=== PATIENT | male | born 1975 | race Caucasian/White ===

== ENCOUNTER 2021-12-03 18:22 | Emergency (ER) | payer OTHER, MEDICAID, SELFPAY ==
[2021-12-03 18:30] VITALS: BP 149/84; PULSE 108; RESP 20; TEMP 37.5; O2SAT 97
--- NOTE | 2021-12-03 18:38 | ED.NAVMDI ---
HPI - Nausea/Vomiting/Diarrhea General Chief complaint: Upper Respiratory Infection Stated complaint: fever diahrrea and pain on side pain Time Seen by Provider: 12/03/21 18:41 Source: patient and RN notes reviewed Mode of arrival: ambulatory Limitations: no limitations History of Present Illness HPI Narrative: 46-year-old male presents with concern for 3-day history of fever, body aches, slight cough, nasal congestion. He reports chronic diarrhea and epigastric pain for which he has seen his primary care doctor for. He denies any changes in his chronic symptoms. He also reports chronic swelling glands. Reports taking Tylenol for his fever prior to arrival. Reports a fever up to 101.7 MD elicited complaint: nausea, vomiting and diarrhea Related Data Home Medications Medication Instructions Recorded Confirmed omeprazole 20 mg capsule,delayed 20 mg PO BID 12/03/21 12/03/21 release Allergies Allergy/AdvReac Type Severity Reaction Status Date / Time No Known Allergies Allergy Verified 12/03/21 18:42 Review of Systems Review of Systems: CONSTITUTIONAL: Reports malaise, chills, sweats, or fever. EYES: Denies visual changes, redness, or discharge. ENT: Reports rhinorrhea, congestion. Denies sinus pain, otalgia and sore throat. CARDIOVASCULAR: Denies chest pain, palpitations, or edema. RESPIRATORY: Reports cough. Denies dyspnea. GASTROINTESTINAL: Reports chronic epigastric abdominal pain, diarrhea. Denies nausea, vomiting SKIN: Denies rash or itching. MUSCULOSKELETAL: Reports myalgia. NEUROLOGIC: Reports headache. All systems reviewed & are unremarkable except as noted in HPI and below PMFSH Comments At time of signature, agree with nursing past medical, surgical, social and family history. There is no relevant family history pertinent to the presenting complaint Exam Narrative: ENERAL: Nontoxic and in no acute distress. HEAD: Normocephalic EYES: PERRLA, conjunctivae clear ENT: Nares clear, clear discharge. Mucous membranes moist. TM pearly donovan with dull light reflex bilaterally; no tragal tenderness. Oropharynx not erythematous without lesions. Tonsils not enlarged and without exudate, no drooling, no hoarseness, no trismus, uvula midline. NECK: Supple. No lymphadenopathy CHEST: Clear to auscultation, breath sounds equal. No wheezing, rhonchi, rales, or stridor. No respiratory distress, speaks in full sentences. HEART: Regular rate and rhythm. No murmur heard. ABDOMEN: Soft, flat, nondistended. No guarding, rebound tenderness, or rigid. No pulsatilla masses. Bowel sounds present in all four quadrants. No organomegaly. Negative Kraft?s sign. No periumbilical tenderness. No Supra public tenderness or distension. Good femoral pulses bilaterally. No hernia noted. No scars or surface trauma. SKIN: Warm, dry, no rash. NEURO: Alert and oriented x3. PSYCH: Normal mood and affect Course Course Emergency Course: Discussed limited diagnostic capability at [facility] and patient following up with his primary care doctor for further evaluation of his chronic gastric symptoms and lymphadenopathy. Patient given information for gastroenterology follow-up Patient is aware of diagnosis, understands and agrees to treatment plan. Anticipatory guidance given. Patient agrees to follow-up as directed and is aware of reasons to seek care at the emergency department. Portions of this record may have been created with voice recognition software Level of Care: Express Care Visit Vital Signs Vital signs: Reviewed. MDM - Nausea/Vomiting/Diarrhea MDM Narrative Medical decision making narrative: Differential diagnosis considered: [place] virus, strep pharyngitis, allergic rhinitis, upper respiratory tract infection, sinusitis, rhinosinusitis, nasopharyngitis. viral pharyngitis, otitis media, otitis externa, pneumonia, bronchitis, viral cough syndrome, viral syndrome, and influenza. Exam findings show no acute concerns or changes; franchesca
[2021-12-04 18:53] LABS: SARS-CoV-2 RNA PCR Negative
== END 2021-12-03 19:21 | disposition home or self-care (01) ==
PROVIDERS: Emergency Provider Nurse Practitioner
DX: J10.1 Influenza due to other identified influenza virus with other respiratory manifestations (principal); Z20.822 Contact with and (suspected) exposure to COVID-19; K21.9 Gastro-esophageal reflux disease without esophagitis
CPT/HCPCS: 87081; 87804; 87880; 99213; C9803; G0463; U0003; U0005

== ENCOUNTER 2022-04-12 17:39 | Emergency (ER) | payer OTHER, SELFPAY ==
[2022-04-12 17:44] VITALS: BP 138/88; PULSE 93; RESP 18; TEMP 37.4; O2SAT 99
--- NOTE | 2022-04-12 18:01 | ED.URI ---
HPI - URI/Sore Throat General Chief Complaint: Skin/Abscess/Foreign Body Stated Complaint: rash on chest Time Seen by Provider: 04/12/22 18:01 Source: patient, RN notes reviewed and old records reviewed Mode of arrival: ambulatory Limitations: no limitations History of Present Illness HPI Narrative: 46 year old male who presents to express care with complaints of rash to his chest 4 days ago. He states that he went today and had echocardiogram done and they expressed concern of the rash on chest wondering if could be shingles. Patient reports that he does have dogs that go out and he carries one up on his chest that could of gotten into poison beckie. Patient has area on left chest area that has vesicles with some yellowish drainage reported from area yesterday and area is itching. Patient also has small area to right inner wrist area that appears similar that is also itchy, MD elicited complaint: other (rash) Onset (ago): day(s) (4) Treatments prior to arrival: other (cleansed with alcohol and applied hydrocortisone ointment) Related Data Home Medications Medication Instructions Recorded Confirmed metoprolol succinate 50 mg 50 mg PO DAILY 04/12/22 04/12/22 tablet,extended release 24 hr omeprazole 20 mg capsule,delayed 20 mg PO DAILY 04/12/22 04/12/22 release pantoprazole 40 mg tablet,delayed 40 mg PO DAILY 04/12/22 04/12/22 release Allergies Allergy/AdvReac Type Severity Reaction Status Date / Time No Known Allergies Allergy Verified 04/12/22 17:57 Review of Systems Review of Systems: CONSTITUTIONAL: Denies fever, chills, or sweats. CARDIOVASCULAR: Denies chest pain, palpitations, or edema. RESPIRATORY: Denies cough or dyspnea. SKIN: Reports rash to left chest area that is itchy and did have some yellowish drainage from tissue area, also small area on right inner wrist. MUSCULOSKELETAL: Denies joint pain or myalgia. NEUROLOGIC: Denies headache, numbness, or weakness. All systems reviewed & are unremarkable except as noted in HPI and below PMFSH Past Medical History Medical History (Updated 04/16/22 @ 10:15 by Marianne Albert NP) GERD (gastroesophageal reflux disease) Hypertension Social History Social History (Updated 04/16/22 @ 10:16 by Marianne L. Bety, BUFFING MACHINE OPERATOR) Smoking status: Never smoker Alcohol intake: unknown Substance use type: does not use Living arrangements: with family Gender identity (if verbalized by the patient): Male Comments At time of signature, agree with nursing past medical, surgical, social and family history. There is no relevant family history pertinent to the presenting complaint Exam Narrative: GENERAL: Well-appearing, well-nourished, and in no acute distress. HEAD: Normocephalic, atraumatic. EYES: PERRLA, conjunctivae clear, and EOMI. ENT: Mucous membranes moist. Oropharynx without edema, erythema or lesions. NECK: Supple. No lymphadenopathy CHEST: Clear to auscultation. No respiratory distress. HEART: Regular rate and rhythm. SKIN: Warm, dry.? Patches of erythema and edema left chest area with vesicles and on inner right wrist small area NEURO:? Alert and oriented x3. PSYCH: Normal mood and affect Course Course Emergency Course: Patient is aware of diagnosis, understands and agrees to treatment plan.? Anticipatory guidance given.? Patient agrees to follow-up as directed and is aware of reasons to seek care at the emergency department. Portions of this record may have been created with voice recognition software Level of Care: Express Care Visit Vital Signs Vital signs: Vital Signs Temperature 37.4 C 04/12/22 17:44 Pulse Rate 93 04/12/22 17:44 Respiratory Rate 18 04/12/22 17:44 Blood Pressure 138/88 04/12/22 17:44 Pulse Oximetry 99 04/12/22 17:44 Oxygen Delivery Room Air 04/12/22 17:44 Temperature 37.4 C 04/12/22 17:44 Pulse Rate 93 04/12/22 17:44 Respiratory Rate 18 04/12/22 17:44 Blood Pressure
== END 2022-04-12 18:30 | disposition home or self-care (01) ==
PROVIDERS: Emergency Provider Registered Nurse; PCP Family Medicine
DX: L25.9 Unspecified contact dermatitis, unspecified cause (principal); K21.9 Gastro-esophageal reflux disease without esophagitis; I10 Essential (primary) hypertension
CPT/HCPCS: 99213; G0463

== ENCOUNTER 2023-03-03 08:06 | Emergency (ER) | payer OTHER, SELFPAY ==
[2023-03-03 08:15] VITALS: BP 133/78; PULSE 65; RESP 18; TEMP 36.7; O2SAT 100
--- NOTE | 2023-03-03 08:54 | ED.GENADULT ---
HPI - General Adult General Chief complaint: Upper Respiratory Infection Stated complaint: sore throat,runny nose,chest hurts Source: patient Mode of arrival: ambulatory Limitations: no limitations History of Present Illness HPI narrative: Patient presents for evaluation of sick symptoms for the last 2-3 days. His primary concern is a sore throat. He also has rhinorrhea and has been sneezing. He visualized white exudate in his posterior pharynx. Reports some right lower chest pain. He had similar symptoms in the past with COVID. No recent sick contacts to his knowledge. No fever, chills, nausea, vomiting, cough, shortness of breath. He tried taking Emilia for his symptoms. He does not smoke. Related Data Home Medications Medication Instructions Recorded Confirmed metoprolol succinate 50 mg 50 mg PO DAILY 04/12/22 03/03/23 tablet,extended release 24 hr atorvastatin 40 mg tablet 40 mg PO DAILY 03/03/23 03/03/23 Allergies Allergy/AdvReac Type Severity Reaction Status Date / Time No Known Allergies Allergy Verified 03/03/23 08:34 Review of Systems Review of Systems: CONSTITUTIONAL: Denies fever, chills, or sweats. EYES: Denies visual changes, redness, or discharge. ENT: Reports sneezing, rhinorrhea and sore throat CARDIOVASCULAR: Reports right lower chest pain. Denies palpitations, or edema. RESPIRATORY: Denies cough or dyspnea. GASTROINTESTINAL: Denies abdominal pain, nausea, vomiting, or diarrhea. GENITOURINARY: Denies dysuria or hematuria. SKIN: Denies rash or itching. MUSCULOSKELETAL: Denies back pain, joint pain, or myalgia. NEUROLOGIC: Denies headache, numbness, dizziness, or weakness. PSYCHIATRIC: Denies anxiety or depression. [facility] Past Medical History Medical History GERD (gastroesophageal reflux disease) Hyperlipidemia Hypertension Surgical History Surgical History No pertinent past surgical history Family History Family History Mother Family history non-contributory Social History Social History Smoking status: Never smoker Alcohol intake: unknown Substance use type: does not use Living arrangements: alone Gender identity (if verbalized by the patient): Male Spiritual care concerns: No Exam Narrative: GENERAL: Well-appearing, well-nourished, and in no acute distress. HEAD: Normocephalic, atraumatic. EYES: PERRLA and EOMI. ENT: Nares clear, no rhinorrhea or epistaxis. Mucous membranes moist. There is posterior pharyngeal erythema and white exudate. Uvula is midline. Bilateral TMs pearly donovan nonbulging NECK: Supple. No adenopathy or masses. No carotid bruits or JVD CHEST: Clear to auscultation. No respiratory distress. No wheezes rales or rhonchi HEART: Regular rate and rhythm. No murmur heard. Normal peripheral pulses. ABDOMEN: Soft, nontender, nondistended, normal active bowel sounds. EXTREMITIES: Normal range of motion. No edema. SKIN: Warm, dry, no rash. NEURO: No focal deficits. Alert and oriented x3. PSYCH: Normal mood and affect. Course Course Emergency Course: This is a 47-year-old male who presented for evaluation of sick symptoms. Strep, COVID, influenza were all negative. I recommended he repeat a COVID test in 48 hours. Will send throat culture. Will dc with augmentin per his preference while throat culture pending. Follow up with primary care provider. Go to the ER for worsening symptoms. Pt in agreement with plan of care. Level of Care: Express Care Visit Vital Signs Vital signs: Vital Signs Temperature 36.7 C 03/03/23 08:15 Pulse Rate 65 03/03/23 08:15 Respiratory Rate 18 03/03/23 08:15 Blood Pressure 133/78 03/03/23 08:15 Pulse Oximetry 100 03/03/23 08:15 Oxygen Delivery
== END 2023-03-03 08:55 | disposition home or self-care (01) ==
PROVIDERS: Emergency Provider Nurse Practitioner; PCP Family Medicine
DX: J02.9 Acute pharyngitis, unspecified (principal); K21.9 Gastro-esophageal reflux disease without esophagitis; E78.5 Hyperlipidemia, unspecified; I10 Essential (primary) hypertension
CPT/HCPCS: 87081; 87426; 87804; 87880; 99213; C9803; G0463

== ENCOUNTER 2024-08-15 10:27 | Emergency (ER) | payer OTHER, SELFPAY ==
[2024-08-15 10:38] VITALS: BP 135/87; PULSE 86; RESP 20; TEMP 36.8; O2SAT 100
--- OUTSIDE RECORDS SUMMARY | 2024-08-15 10:41 | XMS_ITS | Encounter Summary ---
Author Organization [facility] Address [address] [place] [address] Phone Care Team Providers Care Senior Licensing Manager Name Role Phone Juan Estrada MD Primary Care Provider [phone] Sanchez Estrada MD Unavailable Doug Anne MD Unavailable Diane Donald RN Unavailable Unavaila Jasmine Philip APRN, STICK PULLER Unavailable [phone]- [phone] Bjorn Denise PAC Unavailable [phone] Reason for Visit * Reason Onset Date Comments Prior Authorization 08/03/2022 Encounter Details Date Type Department Care Team (Late st Contact Info) Description 08/03/2022 Telephone [facility] Outpatient [address] [place] [address] Juan Estrada MD #[address] [address] Prior Authorization Social History Tobacco Use Types Packs/Day Years Used Date Smoking Tobacco: Never Smokeless Tobacco: Never Alcohol Use Standard Drinks/Week Comments Never 0 (1 standard drink = 0.6 oz pur e alcohol) PHQ-2 Answer Date Recorded Total Score - Questions 1-9 0 12/31 Education Answer Date Recorded What is the highest level of school you have completed or the highest degree you have received? Associate degree: occupational, technical, or vocational program 11/15/2021 Sexually Active Control Partners Comments Not Currently Female Sex and Gender Information Value Date Recorded Sex Assigned at Male 02/12/2023 9:20 AM CDT Legal Sex Male 10:28 PM CDT Gender Identity Male 02/12/2023 9:20 AM CDT Sexual Orientation Not on file COVID-19 Exposure Response Date Recorded In the last 10 days, have yo u been in contact with someone who was confirmed or suspected to have Coronavirus/COVID-19? No / Unsure 08/03/2022 2:27 PM INSOLE PRESSER documented as of this encounter Miscellaneous Notes * Telephone Encounter - Juan Estrada MD - 08/03/2022 3:06 PM INSOLE PRESSER Thanks for setting this up! LE PRESSER * Telephone Encounter - Gertrude Raygoza RN - 08/03/2022 12:46 PM CST Scheduled for tomorrow, 10 am. They will call you LE PRESSER * Telephone Encounter - Juan Estrada MD - 08/03/2022 10:23 AM INSOLE PRESSER Please schedule peer to peer for tomorrow morning. Thanks! LE PRESSER * Telephone Encounter - Emilie Perla - 08/03/2022 10:14 AM CST Auth Denied-P2P offered Ordering Provider: Internal Appointment Info: Clinic: [facility] Provider: DAMIANMHARMANILAB Appt Date/Time: Aug 9:00 AM Clinic: [facility] Provider: [email or web address] Appt Date/Time: Aug 9:15 AM Clinic: [facility] Provider: SHAMEKA Burrell Date/Time: Aug 10:00 AM Payor + Plan: MEDICAID AETNA BETTER HEALTH - A[employer] BETTER HEALTH MEDICAID CPT/Test: 03090 Authorization denied through: [employer] Reason for denial: Based on [employer] Cardiac Imaging Guidelines Section(s): Stress Testing with Imaging - Indications (CD 1.4), we cannot approve this request. Your healthcare provider told us that there is a concern related to the blood vessels in your heart. The request cannot be approved because: You must have one of the following. -Findings on your current electrocardiogram or ECG (a tracing of your heart's electrical activity) that could make it hard to determine whether or not your heart is getting enough blood supply with exercise. -An inability to walk on a treadmill as much as needed to reach the target heart rate during an exercise treadmill test or ETT (an ECG and blood pressure check done before, during, and after walking on a treadmill). This would be due to the need for ambulatory assistance (such as a wheelchair, cane, or walker), a significant neurologic (nerves and/or nervous system) issue, or an orthopedic issue. -A history of an ETT with results that were abnormal but did not appear to be due to coronary artery disease (a disease to the blood vessels that provide blood to your heart muscle). Add'l Steps Taken (Pt Notified, Reached out to Provider, etc.): Peer to Peer review offered by Payer: Yes Peer to Peer review expires: 08/17/22 Case #: [id number] Phone #: [phone] Physician: Juan Barry Notified? Yes LE PRESSER documented in this encounter Plan of Treatment Upcoming Encounters Date Type Department Care Team (Late st Contact Info) Description 09/02/2024 10:30 AM INSOLE PRESSER Office Visit [facility] - Neurology - [place] [address] [place] [address] Jasmine Rico APRN, STICK PULLER [address] [place] [address] documented as of this encounter Visit Diagnoses Not on filedocumented in this encounter Care Teams Senior Licensing Manager Relationship Specialty Start Date End Date Juan Estrada MD #2 [facility] [address] [place] [address] PCP - General Family Medicine 01/11/21 Sanchez Estrada MD #2 [facility] [address] [place] [address] Consulting Physician Colon and Rectal Surgery 03/07/22 Doug Anne MD #[address] [address] Consulting Physician Cardiovascular Disease - Cardiology 05/01/22 Diane Schwartz RN [place] Registered Nurse Cardiology 05/09/22 Jasmine Rico, FUEL RETROFITTING TECHNICIAN, STICK PULLER [address] [place] [address] Nurse Practitioner Advanced Practice Nurse 06/16/22 Bjorn Denise PAC #2 [facility] [facility] [address] [place] [address] Physician Home Visit Field Care Manager Physician Home Visit Field Care Manager 08/05/24 documented as of this encounter
--- OUTSIDE RECORDS SUMMARY | 2024-08-15 10:42 | XMS_ITS | Encounter Summary ---
Author Organization [facility] Address [address] [place] [address] Phone Care Team Providers Care Chair Springer Name Role Phone Juan Estrada MD Primary Care Provider [phone] Sanchez Estrada MD Unavailable Doug Anne MD Unavailable Diane Donald RN Unavailable Unavaila Jasmine Philip APRN, SUBPOENA SERVER Unavailable [phone] Bjorn Denise PAC Unavailable [phone] Encounter Details Date Type Department Care Team (Late st Contact Info) Description 06/22/2024 Results Follow-Up [facility] - Family Medicine [facility] #[address] [place] [id number] Juan Estrada MD #[address] [address] Social History Tobacco Use Types Packs/Day Years Used Date Smoking Tobacco: Never Smokeless Tobacco: Never Alcohol Use Standard Drinks/Week Comments Never 0 (1 standard drink = 0.6 oz pur e alcohol) Overall Financial Resource Strain (CARDIA) Answe r Date Recorded How hard is it for you to pa y for the very basics like food, housing, medical care, and heating? Somewhat hard 06/03/2024 PHQ-2 Answer Date Recorded Total Score - Questions 1-9 0 08/2023 [place] [facility] - Occupational Stress Questionnaire Answer Date Recorded Do you feel stress - tense, restless, nervous, or anxious, or unable to sleep at night because your mind is troubled all the time - these days? To some extent 06/03/2024 Exercise Vital Sign Answer Date Recorde d On average, how many days pe r week do you engage in moderate to strenuous exercise (like a brisk walk)? 0 days 06/03/2024 On average, how many minutes do you engage in exercise at this level? 0 min 06/03/2024 Hunger Vital Sign Answer Date Recorded Within the past 12 months, y ou worried that your food would run out before you got the money to buy more. Never true 06/03/20 24 Within the past 12 months, t he food you bought just didn't last and you didn't have money to get more. Never true 06/03/2024 PRAPARE - Transportation Answer Date Re corded In the past 12 months, has l ack of transportation kept you from medical appointments or from getting medications? No 08/2023 In the past 12 months, has l ack of transportation kept you from meetings, work, or from getting things needed for daily living? No 06/03/2024 Housing Stability Vital Sign Answer Israel e Recorded In the last 12 months, was t here a time when you were not able to pay the mortgage or rent on time? No 06/03/2024 Number of Times Moved in the Last Year Not on fi le 06/03/2024 At any time in the past 12 m [facility], were you homeless or living in a usp (including now)? No 06/03/2024 Education Answer Date Recorded What is the [...] AM CDT Sexual Orientation Not on file documented as of this encounter Plan of Treatment Upcoming Encounters Date Type Department Care Team (Late st Contact Info) Description 09/02/2024 10:30 AM CO FOUNDER AND PRESIDENT Office Visit [facility] - Neurology - [place] [address] [place] [address] Jasmine Rico APRN, SUBPOENA SERVER [address] [place] [address] documented as of this encounter Visit Diagnoses Not on filedocumented in this encounter Additional Health Concerns Assessment Noted Time PHQ-9 Depression Total Score: 0 06/03/20 24 3:28 PM CO FOUNDER AND PRESIDENT documented as of this encounter Care Teams Chair Springer Relationship Specialty Start Date End Date Juan Estrada MD #[address] [address] PCP - General Family Medicine 01/11/21 Sanchez Estrada MD [address] [address] Consulting Physician Colon and Rectal Surgery 03/07/22 Doug Anne MD #[address] [address] Consulting Physician Cardiovascular Disease - Cardiology 05/01/22 Diane Schwartz RN [place] Registered Nurse Cardiology 05/09/22 Jasmine Rico APRN, SUBPOENA SERVER #[address] [place] [address] Nurse Practitioner Advanced Practice Nurse 06/16/22 Bjorn Denise PAC [address] [address] Physician Patient Safety Manager Physician Patient Safety Manager 08/05/24 documented as of this encounter
--- OUTSIDE RECORDS SUMMARY | 2024-08-15 10:42 | XMS_ITS | Continuity of Care Document ---
Author Organization [facility] Address [address] [place] [address] [address] [place] [address] Phone Care Team Providers Care Hand Coremaker Name Role Phone Argueta OD, Pablo Unavailable Unavailable Procedures Procedure Date Office/outpatient Visit, Est Office/outpatient Visit, Est Office/outpatient Visit, New Therapeutic Fitting Of Contact Lens Advance Directives Directive Yes / No Effective Date File Name No Information Encounters Encounter Description Practice Location Reason(s) For Visit Diagnoses Date Provider Providers Copied on Encounter Office/outpat ient Visit, [facility], [address] [place] [address] [address], [place], [place], [id number], tel:[phone] [facility] No Information 9-200 8 Argueta OD Pablo. [facility] [address] [facility] [address], [place], [address], . tel:[phone] Office/outpat ient Visit, [facility], [address] [place] [address] [address], [place], [place], [id number], tel:[phone] [facility] No Information 2-200 8 Argueta OD Pablo. Vivian [facility] [address], [place], [address], [place]. tel:[phone] Referring Provider: Vivian Self [facility] [address], [place], [place], [facility]. tel:[phone] Office/outpat ient Visit, [facility], [address] [place] [address] [address], [place], [place], [id number], [place] tel:[phone] [facility] [place] No Information [address] Carrillo. [address] [facility] , [address], [place], [address], [place]. tel:[phone] Family History Family Member Type Diagnosis Age At Onset No Information Payers Payer name Insurance type Covered democrat ID Juan davalos(s) [employer] [id number] Social History Type Description Quantity Date Captured Comments Sex Male Smoking Status No Information Chief Complaint And Reason For Visit No Information Reason For Referral Reason For Referral No Information History Of Present Illness Encounter Date Complaint History Of Prese nt Illness No Information Functional Status Date Functional Assessmen t No Information Instructions Date Instruction Additional Infor mation No Information Assessments Type Assessment Date No Information Patient Care Teams Name Effective Dates (start - stop) Status Members No Information
--- OUTSIDE RECORDS SUMMARY | 2024-08-15 10:42 | XMS_ITS | Encounter Summary ---
Author Organization [facility] Address [address] [place] [place] [address] Phone Care Team Providers Care Faith Doctor Name Role Phone Juan Estrada MD Primary Care Provider [phone] Sanchez Estrada MD Unavailable Doug Anne MD Unavailable Diane Donald RN Unavailable Unavaila Jasmine Philip THREAD LASTER, DIPLOMATIC COURIER Unavailable [phone] Bjorn Denise PAC Unavailable [phone] Reason for Visit * Reason Comments Medication Refill Encounter Details Date Type Department Care Team (Late st Contact Info) Description 11/07/2023 Refill [facility] - Neurology [facility] [address] [place] [id number] Jasmine Rico, THREAD LASTER, DIPLOMATIC COURIER [address] [place] [address] Medication Refill Social History Tobacco Use Types Packs/Day Years [...] on file documented as of this encounter Miscellaneous Notes * Telephone Encounter - Diane Coffman RN - 11/07/2023 1:20 PM CDT Medication failed the protocol, provider to review and approve the medication order if appropriate. Requested Prescriptions Pending Prescriptions Disp Refills cyclobenzaprine (FLEXERIL) 5 MG Tablet [Pharmacy Med Name: Cyclobenzaprine HCl 5 MG Oral Tablet] 30Tablet 2 Sig: TAKE 1 TABLET BY MOUTH ONCE DAILY NEEDED FOR MUSCLE SPASM Not Delegated - Muscle Relaxants Protocol Failed - 11/07/2023 1:17 PM Failed - This refill cannot be delegated Passed - Visit with relevant provider in past 12 months or upcoming 90 days Recent Visits Date Type Provider Dept 08/02/23 Office Visit Jasmine Rico APRN, CNS [facility] Neurology [facility] 05/02/23 Office Visit Jasmine Rico APRN, CNS [facility] Neurology [facility] 03/21/23 Office Visit Jasmine Rico APRN, CNS [facility] Neurology [facility] 03/16/23 Office Visit Juan Estrada MD [facility] 01/18/23 Office Visit Jasmine Rico APRN, CNS [facility] Neurology [facility] 01/16/23 Telemedicine Juan Estrada MD [facility] 12/14/22 Office Visit Juan Estrada MD [facility] 11/13/22 Office Visit Jasmine Rico APRN, CNS [facility] Neurology [facility] Showing recent visits within past 365 days and meeting all other requirements Future Appointments Date Type Provider Dept 02/04/24 Appointment Jasmine Rico APRN, CNS [facility] Neurology [facility] Showing future appointments within next 90 days and meeting all other requirements documented in this encounter Plan of Treatment Upcoming Encounters Date Type Department Care Team (Late st Contact Info) Description 09/02/2024 10:30 AM LUMBER TALLIER Office Visit [facility] - [facility]rology - [place] [address] [place] [address] Jasmine Rico APRN, DIPLOMATIC COURIER [address] [place] [address] documented as of this encounter Visit Diagnoses Diagnosis Neck pain, bilateral Cervicalgia documented in this encounter Care Teams Faith Doctor Relationship Specialty Start Date End Date Juan Estrada MD [address] [address] PCP - General Family Medicine 01/11/21 Sanchez Estrada MD [address] [address] [address] Consulting Physician Colon and Rectal Surgery 03/07/22 Doug Anne MD [address] [address] Consulting Physician Cardiovascular Disease - Cardiology 05/01/22 Diane Schwartz RN [place] Registered Nurse Cardiology 05/09/22 Jasmine Rico APRN, DIPLOMATIC COURIER [address] [place] [address] Nurse Practitioner Advanced Practice Nurse 06/16/22 Bjorn Denise PAC #2 [facility] [address] [address] Physician Value Engineer Physician Value Engineer 08/05/24 documented as of this encounter
--- OUTSIDE RECORDS SUMMARY | 2024-08-15 10:42 | XMS_ITS | Encounter Summary ---
Author Organization [facility] Address [address] [place] [address] Phone Care Team Providers Care Blind Hooker Name Role Phone Juan Estrada MD Primary Care Provider [phone] Sanchez Estrada MD Unavailable Doug Anne MD Unavailable Diane Donald RN Unavailable Unavaila Jasmine Philip APRN, CATALYST OPERATOR CHIEF Unavailable [phone] Bjorn Denise PAC Unavailable [phone] Reason for Visit * Reason Comments Medication Refill Encounter Details Date Type Department Care Team (Late st Contact Info) Description 12/13/2023 Refill [facility] - Neurology [facility] [address] [place] [address] Carlo Garcia MD [address] [place] [address] Medication Refill Social History Tobacco Use Types [...] Telephone Encounter - Diane Coffman RN - 12/13/2023 1:06 PM CDT Medication failed the protocol, provider to review and approve the medication order if appropriate. Requested Prescriptions Pending Prescriptions Disp Refills venlafaxine (EFFEXOR-XR) 37.5 MG CAPSULE SR 24 HR [Pharmacy Med Name: Venlafaxine HCl ER 37.5 MG Oral Capsule Extended Release 24 Hour] 90 Capsule 0 Sig: Take 1 capsule by mouth once daily SNRI (6 Month Refill Only) Protocol Failed - 12/13/2023 10:41 AM Failed - Has an encounter in the past 6 months with a depression or anxiety visit diagnosis Passed - Visit with relevant provider in past 6 months or upcoming 90 days Recent Visits Date Type Provider Dept 08/02/23 Office Visit Jasmine Rico APRN, CATALYST OPERATOR CHIEF [facility] Neurology [facility] Showing recent visits within past 182 days and meeting all other requirements Future Appointments Date Type Provider Dept 02/04/24 Appointment Jasmine Rico APRN, CATALYST OPERATOR CHIEF [facility] Neurology [facility] Showing future appointments within next 90 days and meeting all other requirements Passed - Patient has established therapy with Serotonin-Norepinephrine Reuptake Inhibitors for at least 6 months documented in this encounter Plan of Treatment Upcoming Encounters Date Type Department Care Team (Late st Contact Info) Description 09/02/2024 10:30 AM SIEBEL ADMINISTRATOR Office Visit [facility] - Neurology - [place] [address] [place] [address] Jasmine Rico APRN, CATALYST OPERATOR CHIEF [address] [place] [address] documented as of this encounter Visit Diagnoses Diagnosis Chronic migraine w/o aura w/o status migrainosus, not intractable Chronic migraine without aura, without mention of intractable migraine without mention of status migrainosus Anxiety Anxiety state, unspecified documented in this encounter Care Teams Blind Hooker Relationship Specialty Start Date End Date Juan Estrada MD #2 [facility] [address] [place] [address] PCP - General Family Medicine 01/11/21 Sanchez Estrada MD #2 [facility] [address] [place] [address] Consulting Physician Colon and Rectal Surgery 03/07/22 Doug Anne MD #[address] [address] Consulting Physician Cardiovascular Disease - Cardiology 05/01/22 Diane Schwartz RN [place] Registered Nurse Cardiology 05/09/22 Jasmine Rico, AQUATICS MANAGER, CATALYST OPERATOR CHIEF [address] [place] [address] Nurse Practitioner Advanced Practice Nurse 06/16/22 Bjorn Denise PAC #2 [facility] [address] [place] [address] Physician Senior Medical Director Physician Senior Medical Director 08/05/24 documented as of this encounter
--- OUTSIDE RECORDS SUMMARY | 2024-08-15 10:42 | XMS_ITS | Encounter Summary ---
Author Organization [facility] Address [address] [place] [address] Phone Care Team Providers Care Traffic Coordinator Name Role Phone Juan Estrada MD Primary Care Provider [phone] Sanchez Estrada MD Unavailable Doug Anne MD Unavailable Diane Donald RN Unavailable Unavaila Jasmine Philip APRN, BLACK ASH WORKER Unavailable [phone]- [phone] Bjorn Denise PAC Unavailable [phone] Reason for Visit * Reason Comments Medication Refill Encounter Details Date Type Department Care Team (Late st Contact Info) Description 09/13/2023 Refill [facility] - Neurology [facility] [address] [place] [address] Carlo Garcia MD [address] [place] [address] Medication Refill Social History Tobacco [...] encounter Miscellaneous Notes * Telephone Encounter - Leana Figueroa RN - 09/14/2023 8:12 AM CDT Medication(s) refilled and signed per [facility] Chronic Medication Refill Standing Order for Pediatricand Adult Patients. Requested Prescriptions Pending Prescriptions Disp Refills venlafaxine (EFFEXOR-XR) 37.5 MG CAPSULE SR 24 HR [Pharmacy Med Name: Venlafaxine HCl ER 37.5 MG Oral Capsule Extended Release 24 Hour] 90 Capsule 0 Sig: Take 1 capsule by mouth once daily SNRI (6 Month Refill Only) Protocol Failed - 09/13/2023 6:04 PM Failed - Patient has established therapy with Serotonin-Norepinephrine Reuptake Inhibitors for at least 6 months Passed - Visit with relevant provider in past 6 months or upcoming 90 days Recent Visits Date Type Provider Dept 08/02/23 Office Visit Jasmine Rico APRN [facility] Neurology [facility] 05/02/23 Office Visit Jasmine Rico APRN [facility] Neurology [facility] 03/21/23 Office Visit Jasmine Rico APRN, CNS [facility] Neurology [facility] 03/16/23 Office Visit Juan Estrada MD [facility] Showing recent visits within past 182 days and meeting all other requirements Future Appointments No visits were found meeting these conditions. Showing future appointments within next 90 days and meeting all other requirements Passed - Has an encounter in the past 6 months with a depression or anxiety visit diagnosis documented in this encounter Plan of Treatment Upcoming Encounters Date Type Department Care Team (Late st Contact Info) Description 09/02/2024 10:30 AM FENCE ERECTOR SUPERVISOR Office Visit [facility] - Neurology - [place] [address] [place] [address] Jasmine Rico, CHEMISTRY ACCOUNT MANAGER, BLACK ASH WORKER [address] [place] [address] documented as of this encounter Visit Diagnoses Diagnosis Chronic migraine w/o aura w/o status migrainosus, not intractable Chronic migraine without aura, without mention of intractable migraine without mention of status migrainosus Anxiety Anxiety state, unspecified documented in this encounter Care Teams Traffic Coordinator Relationship Specialty Start Date End Date Juan Estrada MD [facility]2 [facility] [address] [address] PCP - General Family Medicine 01/11/21 Sanchez Estrada MD #2 [facility] [address] [address] Consulting Physician Colon and Rectal Surgery 03/07/22 Doug Anne MD [facility]2 [facility] [address] Consulting Physician Cardiovascular Disease - Cardiology 05/01/22 Diane Schwartz, SHAHID [place] Registered Nurse Cardiology 05/09/22 Jasmine Rico, CHEMISTRY ACCOUNT MANAGER, BLACK ASH WORKER [address] [place] [address] Nurse Practitioner Advanced Practice Nurse 06/16/22 Bjorn Denise PAC #2 [facility] [address] [address] Physician Automotive Worker Foreman Physician Automotive Worker Foreman 08/05/24 documented as of this encounter
--- OUTSIDE RECORDS SUMMARY | 2024-08-15 10:42 | XMS_ITS | Clinical Summary ---
Author Organization [facility] Address [address] [place] [address] Phone Care Team Providers Care Centrifugal Operator Name Role Phone Juan Estrada MD Primary Care Provider [phone] Sanchez Estrada MD Unavailable Doug Anne MD Unavailable Diane Donald RN Unavailable Unavaila Jasmine Philip APRN, SANITATION MANAGER Unavailable +- [phone] Bjorn Denise PAC Unavailable [phone] Allergies No known active allergies Medications Haven-3 Fatty Acids (FISH OIL PO) Take by mouth. Activ e MULTIPLE VITAMIN PO Take by mouth. Activ e FIBER COMPLETE PO Take by mouth. Activ e MAGNESIUM POIndications:Ch ronic migraine w/o aura w/o status migrainosus, not intractable Take 250 mg by mouth daily. Active rosuvastatin (CRESTOR) 10 MG Tablet Take 1 Tablet by mouth daily. 90 Tablet 3 4 Active cyclobenzaprine (FLEXERIL) 5 MG TabletIndication s:Neck pain, bilateral Take 1 Tablet by mouth nightly as needed for Muscle spasms. 30 Tablet 2 4 Active Fremanezumab-vfr m (Ajovy) 225 MG/1.5ML Solution Auto-injectorInd ications:Chronic migraine w/o aura w/o status migrainosus, not intractable 225 mg by Subcutaneous route every 30 days. 1.68 mL 2 4 Active Ubrogepant (Ubrelvy) 50 MG TabletIndication s:Chronic migraine w/o aura w/o status migrainosus, not intractable Take 1 Tablet by mouth once as needed for Other (headaches/migra gabino). 10 Tablet 2 4 Active venlafaxine (EFFEXOR-XR) 37.5 MG CAPSULE SR 24 HRIndications:Ch ronic migraine w/o aura w/o status migrainosus, not intractable,Anxi ety Take 1 capsule by mouth once daily 90 Capsule 4 Active metoprolol Succinate (TOPROL-XL) 25 MG TABLET SR 24 HRIndications:Ch ronic migraine w/o aura w/o status migrainosus, not intractable,Prim ananya hypertension Take 1 tablet by mouth once daily 90 Tablet 4 Active Active Problems Problem Noted Date Diagnosed Date Right hip pain 06/03/2024 Chronic left shoulder pain 06/03/2024 Insomnia 03/16/2023 Elevated vitamin B12 level 03/16/2023 Paresthesias 01/16/2023 Hemorrhoids 12/14/2022 Toenail deformity 12/14/2022 Anxiety 12/14/2022 Chest pain 07/28/2022 Claudication of both lower extremities Leg pain, bilateral 07/07/2022 Dizziness 06/09/2022 Family history of MS (multiple sclerosis) 2021 Intractable cluster headache syndrome 06/09/2022 Hypotension 06/09/2022 Bradycardia 06/09/2022 Hypomagnesemia 06/09/2022 Thyroid nodule 06/09/2022 Abnormal EKG 05/09/[address] scan, neck 01/26/2022 Tinnitus of both ears 01/26/2022 Overweight 01/10/2022 Hypokalemia 01/10/2022 Fatigue 01/10/2022 Leukocytosis 01/10/2022 Neck swelling 01/10/2022 HLD (hyperlipidemia) 01/10/2022 Microscopic hematuria 01/12/2021 HTN (hypertension) 01/12/2021 Hyperglycemia 01/12/2021 Encounters Date Type Department Care Team Description 08/05/2024 11:00 AM RN HOME CARE Office Visit [facility] - Orthopedic Surgery - [place] [address] [facility] [place] [address] Bjorn Denise, PAC Chronic left shoulder pain (Primary Dx) Discharge Disposition: Discharged to home or Selfcare 08/03/2024 Travel 06/22/2024 Results Follow-Up [facility] - [place] [address] [facility] [address] Juan Estrada MD 06/17/2024 Telephone [facility] Orthopedic Surgery - [place] [address] [facility] [place] [address] Bjorn Denise, PAC 06/15/2024 Refill [facility] Neurology - [place] [address] [facility] [place] [address] Jasmine Rico APRN, SANITATION MANAGER Medication Refill 06/13/2024 [facility]ill [facility] [place] [address] [facility] [place] [address] Jasmine Rico APRN, SANITATION MANAGER Medication Refill 06/12/2024 3:20 PM RN HOME CARE Clinical Support [facility] - [place], [place] [address] [facility] [place] [address] [facility] Primary hypertension (Primary Dx) Discharge Disposition: Discharged to home or Selfcare 06/10/2024 Travel 06/05/2024 11:50 AM RN HOME CARE - 06/05/2024 11:59 PM RN HOME CARE [facility] [address] [place] [address] Juan Estrada MD Discharge Disposition: Discharged to home or Selfcare 06/05/2024 11:47 AM RN HOME CARE - 06/05/2024 11:49 AM RN HOME CARE [facility] [address] [place] [address] Juan Estrada MD Discharge Disposition: Discharged to home or Selfcare 06/05/2024 11:00 AM RN HOME CARE Office Visit [facility] Neurology [facility] [address] [place] [address] Jasmine Rico APRN, SANITATION MANAGER Chronic migraine w/o aura w/o status migrainosus, not intractable Discharge Disposition: Discharged to home or Selfcare 06/03/2024 3:30 PM RN HOME CARE Office Visit [facility] Family Medicine [facility] [address] [place] [address] Juan Estrada MD Primary hypertension (Primary Dx); Encounter for immunization; Screening for prostate cancer; Right hip pain; Chronic left shoulder pain; Neck pain, bilateral Discharge Disposition: Discharged to home or Selfcare 06/03/2024 Travel from Last 3 Months Immunizations Immunization Administration Dates Next Due COVID-19, MRNA, LNP-S, BIVAL ENT , PFIZER, 30 MCG/0.3 ML (12+ Y/O) 04/20/2022 Covid-19, Mrna, Lnp-s, Pf, 30 Mcg/0.3 Ml Dose (P fizer) 01/17/2021 Influenza Vaccine, Quadrivalent, PF 03/16/2023,1 Influenza,Split Virus,Trivalent,Injectable,PF Family History Medical History Relation Name Comments Suicide Attempts Brother 1 nidia No Known Problems Brother 2 No Known Problems Father No Known Problems Maternal Grandfather Cancer Maternal Grandmother kidney Kidney Cancer Maternal Grandmother Chronic Obstructive Pulmonary Disease Mother No Known Problems Paternal Grandfather No Known Problems Paternal Grandmother Cancer Sister 1 Gale lung Clotting Disorder Sister 1 Gale Lung Cancer Sister 1 Gale Multiple Sclerosis Sister 2 Alma No Known Problems Sister 3 Niharika No Known Problems Sister 4 Quyen No Known Problems Sister 5 Lisa Relation Name Status Comments Brother 1 india Brother 2 Alive Father Maternal Grandfather Maternal Grandmother Mother Alive Paternal Grandfather Paternal Grandmother Sister 1 Gale Sister 2 Alma Alive Sister 3 Niharika Alive Sister 4 Quyen Alive Sister 5 Lisa Alive Social History Tobacco Use Types Packs/Day Years Used Date Smoking Tobacco: Never Smokeless Tobacco: Never Tobacco Cessation:Counseling Given: Not Answered Alcohol Use Standard Drinks/Week Comments Never 0 (1 standard drink = 0.6 oz pur e alcohol) Overall Financial Resource Strain (CARDIA) Answe r Date Recorded How hard is it for you to pa y for the very basics like food, housing, medical care, and heating? Somewhat hard 06/03/2024 PHQ-2 Answer Date Recorded Total Score - Questions 1-9 0 08/2023 [facility] - Occupational Stress [...] any time in the past 12 m [facility], were you homeless or living in a residential (including now)? No 06/03/2024 Education Answer Date [...] AM CDT Sexual Orientation Not on file Last Filed Vital Signs Vital Sign Reading Time Taken Comments Blood Pressure 134/78 08/05/2024 11:02 AM RN HOME CARE Pulse 107 08/05/2024 11:02 AM RN HOME CARE Temperature 36.3 C (97.4 F) 06/05/2024 10:58 AM RN HOME CARE Respiratory Rate 14 08/05/2024 11:02 AM RN HOME CARE Oxygen Saturation 100% 08/05/2024 11:02 AM RN HOME CARE Inhaled Oxygen Concentration - - Weight 86.2 kg (190 lb) 08/05/2024 11:02 AM RN HOME CARE Height 180.3 cm (5' 11 ) 08/05/2024 11:02 AM RN HOME CARE Body Mass Index 26.5 08/05/2024 11:02 AM RN HOME CARE Plan of Treatment Upcoming Encounters Date Type Department Care Team (Late st Contact Info) Description 09/02/2024 10:30 AM RN HOME CARE Office Visit [facility] - Neurology - [place] [address] [place] [address] Jasmine Rico APRN, SANITATION MANAGER [address] [place] [address] Health Maintenance Due Date Last Done Comments Hepatitis C Virus (HCV) Screening 1974 TdaP Immunization 1974 Hepatitis B Immunization (1 of 3 - 19+ 3-dose series) 1993 SARS-COV-2 Immunization ( season) 2024 04/20/2022, 05/29/2021, 01/17/2021 Cologuard 2024 Immunochemical Fecal Occult Blood 2024 Colonoscopy 03/22/2025 03/22/2022 Colorectal Cancer Screening 03/22/2025 Respiratory Syncytial Virus (RSV) Immunization (Adult) (1 - 1-dose 75+ series) 2049 03/22/2022 Influenza Immunization Completed , 03/16/2023, 04/14/2022 Meningococcal Immunization (ACWY) Aged Out No longer eligible b ased on patient's age to complete this topic Pneumococcal Immunization Combined Aged Out No longer eligible b ased on patient's age to complete this topic Rotavirus Immunization Aged Out No lo nger eligible based on patient's age to complete this topic Medical Devices Implanted Type Area Prepress Specialist Device Identifier Shelf Expiration Date Model / Serial / Lot Clip 360 Resolution 235cm - [id number] Implanted:Qty: 1 on 03/22/2022 by Brett Carrington MD at [facility] IMPLANT [employer] [id number] / / [id number] Procedures Procedure Name Priority Date/Time Associated Diagnosis Comments XR HIP 2 VIEWS UNILATERAL RIGHT Routine 06/05/2024 12:04 PM RN HOME CARE Right hip pain XR SHOULDER COMPLETE LEFT Routine 06/05/2024 12:03 PM RN HOME CARE Chronic left shoulder pain THYROID STIMULATING HORMONE (TSH) Routine 06/05/2024 11:37 AM RN HOME CARE Primary hypertension PSA SCREEN Routine 06/05/2024 11:37 AM RN HOME CARE Screening for prostate cancer from Last 3 Months Results * XR HIP 2 VIEWS UNILATERAL RIGHT (06/05/2024 12:04 PM RN HOME CARE) Anatomical Region Laterality Modality LOWER EXTREMITY, hip Right Digital Rad iography 06/05/2024 9:31 PM RN HOME CARE Impressions 06/05/2024 9:33 PM RN HOME CARE IMPRESSION: Normal left shoulder joint space evaluation. Minimal right hip osteoarthritis. Narrative 06/05/2024 9:33 PM RN HOME CARE EXAM DESCRIPTION: XR HIP 2 VIEWS UNILATERAL RIGHT; XR SHOULDER COMPLETE LEFT REASON FOR STUDY: pain in right hip x 4 months. NKI. Pt states intermittent numbness/tingling in right leg, and pain is worse with movement and walking ; Pain in left shoulder x 4 months. NKI. Pt states intermittent numbness/tingling in left arm, limited ROM, and pain is worse with movement. FINDINGS: Two views right hip and four views left shoulder submitted with comparison 12/28/2021. Left shoulder: No acute fractures are identified. Alignment is normal. The joint spaces are normal. Right hip: No acute fractures are identified. Alignment is normal. There is minimal right hip osteoarthritis. THIS IS AN ELECTRONICALLY VERIFIED FINAL REPORT 06/05/2024 9:31 PM - Electronically signed by Danis Colin M.D. MF: HOMAR Report ID: [id number] Reading Location: [id number] Procedure Note Danis Colin MD - 06/05/2024 EXAM DESCRIPTION: XR HIP 2 VIEWS UNILATERAL RIGHT; XR SHOULDER COMPLETE LEFT REASON FOR STUDY: pain in right hip x 4 months. NKI. Pt states intermittent numbness/tingling in right leg, and pain is worse with movement and walking ; Pain in left shoulder x 4 months. NKI. Pt states intermittent numbness/tingling in left arm, limited ROM, and pain is worse with movement. FINDINGS: Two views right hip and four views left shoulder submitted with comparison 12/28/2021. Left shoulder: No acute fractures are identified. Alignment is normal. The joint spaces are normal. Right hip: No acute fractures are identified. Alignment is normal. There is minimal right hip osteoarthritis. THIS IS AN ELECTRONICALLY VERIFIED FINAL REPORT 06/05/2024 9:31 PM - Electronically signed by Danis Colin M.D. MF: HOMAR Report ID: [id number] Reading Location: [id number] IMPRESSION: Normal left shoulder joint space evaluation. Minimal right hip osteoarthritis. Juan Estrada MD IM DIAGNOSTIC ORDERABLES F inal Result * XR SHOULDER COMPLETE LEFT (06/05/2024 12:03 PM RN HOME CARE) Anatomical Region Laterality Modality UPPER EXTREMITY, shoulder Left Digita l Radiography 06/05/2024 9:31 PM RN HOME CARE Impressions 06/05/2024 9:33 PM RN HOME CARE IMPRESSION: Normal left shoulder joint space evaluation. Minimal right hip osteoarthritis. Narrative 06/05/2024 9:33 PM RN HOME CARE EXAM DESCRIPTION: XR HIP 2 VIEWS UNILATERAL RIGHT; XR SHOULDER COMPLETE LEFT REASON FOR STUDY: pain in right hip x 4 months. NKI. Pt states intermittent numbness/tingling in right leg, and pain is worse with movement and walking ; Pain in left shoulder x 4 months. NKI. Pt states intermittent numbness/tingling in left arm, limited ROM, and pain is worse with movement. FINDINGS: Two views right hip and four views left shoulder submitted with comparison 12/28/2021. Left shoulder: No acute fractures are identified. Alignment is normal. The joint spaces are normal. Right hip: No acute fractures are identified. Alignment is normal. There is minimal right hip osteoarthritis. THIS IS AN ELECTRONICALLY VERIFIED FINAL REPORT 06/05/2024 9:31 PM - Electronically signed by Danis Colin M.D. MF: HOMAR Report ID: [id number] Reading Location: [id number] Procedure Note Danis Colin MD - 06/05/2024 EXAM DESCRIPTION: XR HIP 2 VIEWS UNILATERAL RIGHT; XR SHOULDER COMPLETE LEFT REASON FOR STUDY: pain in right hip x 4 months. NKI. Pt states intermittent numbness/tingling in right leg, and pain is worse with movement and walking ; Pain in left shoulder x 4 months. NKI. Pt states intermittent numbness/tingling in left arm, limited ROM, and pain is worse with movement. FINDINGS: Two views right hip and four views left shoulder submitted with comparison 12/28/2021. Left shoulder: No acute fractures are identified. Alignment is normal. The joint spaces are normal. Right hip: No acute fractures are identified. Alignment is normal. There is minimal right hip osteoarthritis. THIS IS AN ELECTRONICALLY VERIFIED FINAL REPORT 06/05/2024 9:31 PM - Electronically signed by Danis Colin M.D. MF: HOMAR Report ID: [id number] Reading Location: [id number] IMPRESSION: Normal left shoulder joint space evaluation. Minimal right hip osteoarthritis. Juan Estrada MD IMG DIAGNOSTIC ORDERABLES F inal Result * THYROID STIMULATING HORMONE (TSH) (06/05/2024 11:37 AM RN HOME CARE) TSH 2.048 0.300 - 5.000 mIU/L 06/05/2024 1:08 PM RN HOME CARE [facility] Blood Venipuncture / Unknown 06/05/2024 11:37 AM RN HOME CARE 06/05/2024 11:58 AM RN HOME CARE Juan Estrada MD CHEMISTRY ORDERABLES Final Result [facility] [address] [place] [address] * PSA SCREEN (06/05/2024 11:37 AM RN HOME CARE) PSA SCREEN, TOTAL 1.36 <4.00 ng/mL 06/05/2024 1:04 PM RN HOME CARE [facility] Blood Venipuncture / Unknown 06/05/2024 11:37 AM RN HOME CARE 06/05/2024 11:58 AM RN HOME CARE Narrative [facility] - 06/05/2024 1:04 PM RN HOME CARE The [employer] Total PSA assay is a Chemiluminescent Microparticle Immunoassay (CMIA) for the quantitative determination of total PSA (both free PSA and PSA complexed to [id number]) in human serum. Total PSA values obtained with different assay methods, including Ramsey PSA assays, cannot be used interchangeably. Juan Estrada MD CHEMISTRY ORDERABLES Final Result [facility] [address] [place] [address] from Last 3 Months Insurance MEDICAID [employer] Care Teams Centrifugal Operator Relationship Specialty Start Date End Date Juan Estrada MD [address] [address] PCP - General Family Medicine 01/11/21 Sanchez Estrada MD #[address] [address] Consulting Physician Colon and Rectal Surgery 03/07/22 Doug Anne MD #[address] [address] Consulting Physician Cardiovascular Disease - Cardiology 05/01/22 Diane Schwartz, RN [place] Registered Nurse Cardiology 05/09/22 Jasmine Rico DIE TESTER, SANITATION MANAGER [address] [place] [address] Nurse Practitioner Advanced Practice Nurse 06/16/22 Bjorn Denise PAC [address] [address] Physician Sales Department Manager Physician Sales Department Manager 08/05/24
--- OUTSIDE RECORDS SUMMARY | 2024-08-15 10:42 | XMS_ITS | Clinical Summary ---
Author Organization 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 Chest tightness 07/18/2023 COVID-19 jarrod vigil manifesting chronic fatigue 07/18/2023 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 07/18/2023 COVID-19 long hauler manifes ting chronic decreased mobility and endurance 07/18/2023 Disrupted sleep-wake cycle 07/18/2023 Vaccine counseling 07/18/2023 History of anxiety 07/18/2023 Nutritional counseling 07/18/2023 History of depression 07/18/2023 Hx of migraines 07/18/2023 Papilloma of tonsil 04/07/2022 Assessment & Plan (04/07/2022 1:15 PM CDT): Continue extra fluids for one more week 1-2 more weeks before all the pain has gone away Tylenol or Ibuprofen Swelling of salivary gland 02/21/2022 Overview (02/21/2022): Added automatically from request for surgery [id number] Lesion of uvula 02/20/2022 Assessment & Plan (02/20/2022 12:23 PM CDT): Direct laryngoscopy and removal of Uvula mass and Left Tonsil Mass Risks and complications discussed including anesthesia, bleeding, infection, injury to lips, teeth, tongue and gums, injury to larynx and surrounding structures, benign versus malignant pathology, need for further treatment. All questions were answered and patient agreed to proceed. Tonsillar mass 02/20/2022 Assessment & Plan (02/20/2022 12:23 PM CDT): Direct laryngoscopy and removal of Uvula mass and Left Tonsil Mass Risks and complications discussed including anesthesia, bleeding, infection, injury to lips, teeth, tongue and gums, injury to larynx and surrounding structures, benign versus malignant pathology, need for further treatment. All questions were answered and patient agreed to proceed. Thyroid nodule 02/20/2022 Assessment & Plan (02/20/2022 12:23 PM CDT): US thyroid Surgical History Surgery Date Site/Laterality Comments COLONOSCOPY NASAL SEPTUM SURGERY ESOPHAGOGASTRODUODENOSCOPY Medical History Medical History Date Comments Hypertension Hyperlipidemia Fatty liver disease, nonalcoholic GERD (gastroesophageal reflux disease) Anxiety Social History Tobacco Use Types Packs/Day Years Used Date Smoking Tobacco: Never Smokeless Tobacco: Never Tobacco Cessation:Counseling Given: Not Answered Alcohol Use Standard Drinks/Week Comments Never 0 (1 standard drink = 0.6 oz pur e alcohol) AUDIT-C Answer Date Recorded Frequency of Alcohol Consumption Not on file 03/22/2022 Q2: How many drinks containi ng alcohol do you have on a typical day when you are drinking? Patient does not drink Frequency of Binge Drinking Not on file 03/03 Personal Safety Answer Date Recorded Getting School Help Needed Denies 07/02 Sex and Gender Information Value Date Recorded Sex Assigned at Not on file Legal Sex Male 7:27 PM MUSIC BOX MECHANIC Gender Identity Male 05/30/2021 9:00 PM MUSIC BOX MECHANIC Sexual Orientation Not on file Obstetrics History Last Filed Vital Signs Vital Sign Reading Time Taken Comments Blood Pressure 152/87 07/18/2023 11:08 AM MUSIC BOX MECHANIC Pulse 89 07/18/2023 11:08 AM MUSIC BOX MECHANIC Temperature 37 C (98.6 F) 07/18/2023 11:08 AM MUSIC BOX MECHANIC Respiratory Rate 18 07/27/2022 10:30 PM MUSIC BOX MECHANIC Oxygen Saturation 100% 07/27/2022 11:15 PM MUSIC BOX MECHANIC Inhaled Oxygen Concentration - - Weight 79.9 kg (176 lb 3.2 oz) 07/18/2023 11:08 AM MUSIC BOX MECHANIC Height 180.3 cm (5' 10.98 ) 07/18/2023 11:08 AM MUSIC BOX MECHANIC Body Mass Index 24.59 07/18/2023 11:08 AM MUSIC BOX MECHANIC Plan of Treatment Health Maintenance Due Date Last Done Comments Colon Cancer Screening-Colonoscopy 1974 Depression Screening 1974 Hepatitis C Screening 1974 DTaP/Tdap/Td Vaccine (1 - Tdap) 1985 Hepatitis B Screening 1992 Regular Well Visit/Exam 18-64 1992 Covid-19 Vaccine (3 - 2023-2 5 season) 2024 05/29/2021, 01/17/2021 Influenza Vaccine (#1) 2024 , 04/14/2022 Pneumococcal vaccine <65 Aged Out No longer eligible based on patient's age to complete this topic [place] [address] AETNA BETTER [facility] AET[employer] BETTER [facility] Care Teams Assistant Basketball Coach Relationship Specialty Start Date End Date Juan Estrada MD [address] [facility] [id number] [address] PCP - General 03/08/21 Aixa Shelley, [address] [address] Blood Bank Calendar Control Clerk Infectious Diseases 07/18/23
--- OUTSIDE RECORDS SUMMARY | 2024-08-15 10:42 | XMS_ITS | Encounter Summary ---
Author Organization [facility] Address [address] [place] [address] Phone Care Team Providers Care Election Watcher Name Role Phone Juan Estrada MD Primary Care Provider [phone] Sanchez Estrada MD Unavailable Doug Anne MD Unavailable Diane Donald RN Unavailable Unavaila Jasmine Philip NEWSPAPER INSERTER, QUALITY IMPROVEMENT MANAGER Unavailable [phone] Bjorn Denise PAC Unavailable [phone] Reason for Visit * Reason Comments Medication Refill Encounter Details Date Type Department Care Team (Late st Contact Info) Description 06/14/2023 Refill [facility] - Neurology [facility] [address] [place] [id number] Jasmine Rico, NEWSPAPER INSERTER, QUALITY IMPROVEMENT MANAGER [address] [place] [address] Medication Refill Social History Tobacco Use Types [...] Telephone Encounter - Leana Figueroa RN - 06/14/2023 10:11 AM CST Medication failed the protocol, provider to review and approve the medication order if appropriate. Requested Prescriptions Pending Prescriptions Disp Refills venlafaxine (EFFEXOR-XR) 37.5 MG CAPSULE SR 24 HR [Pharmacy Med Name: Venlafaxine HCl ER 37.5 MG Oral Capsule Extended Release 24 Hour] 90 Capsule 0 Sig: Take 1 capsule by mouth once daily SNRI (6 Month Refill Only) Protocol Failed - 06/14/2023 10:04 AM Failed - Patient has established therapy with Serotonin-Norepinephrine Reuptake Inhibitors for at least 6 months Passed - Visit with relevant provider in past 6 months or upcoming 90 days Recent Visits Date Type Provider Dept 05/02/23 Office Visit Jasmine Rico APRN, CNS [facility] Neurology [facility] 03/21/23 Office Visit Jasmine Rico APRN [facility] Neu[facility] 03/16/23 Office Visit Juan Estrada MD [facility] 01/18/23 Office Visit Jasmine Rico APRN, CNS [facility] Neurology [facility] 01/16/23 Telemedicine Juan Estrada MD [facility] 12/14/22 Office Visit Juan Estrada MD [facility] Showing recent visits within past 182 days and meeting all other requirements Future Appointments Date Type Provider Dept 08/02/23 Appointment Jasmine Rico APRN [facility] Neu[facility] Showing future appointments within next 90 days and meeting all other requirements Passed - Has an encounter in the past 6 months with a depression or anxiety visit diagnosis NEERING LIBRARIAN documented in this encounter Plan of Treatment Upcoming Encounters Date Type Department Care Team (Late st Contact Info) Description 09/02/2024 10:30 AM ENGINEERING LIBRARIAN Office Visit [facility] - Neurology [facility] [address] [place] [address] Jasmine Rico APRN, QUALITY IMPROVEMENT MANAGER [address] [place] [address] documented as of this encounter Visit Diagnoses Diagnosis Chronic migraine w/o aura w/o status migrainosus, not intractable Chronic migraine without aura, without mention of intractable migraine without mention of status migrainosus Anxiety Anxiety state, unspecified documented in this encounter Care Teams Election Watcher Relationship Specialty Start Date End Date Juan Estrada MD [facility] [address] PCP - General Family Medicine 01/11/21 Sanchez Estrada MD [address] [facility] [address] Consulting Physician Colon and Rectal Surgery 03/07/22 Doug Anne MD #[address] [address] Consulting Physician Cardiovascular Disease - Cardiology 05/01/22 Diane Schwartz RN [place] Registered Nurse Cardiology 05/09/22 Jasmine Rico NEWSPAPER INSERTER, QUALITY IMPROVEMENT MANAGER [address] [place] [address] Nurse Practitioner Advanced Practice Nurse 06/16/22 Bjorn Denise PAC #2 [facility] [address] [address] Physician Substation Supervisor Physician Substation Supervisor 08/05/24 documented as of this encounter
--- OUTSIDE RECORDS SUMMARY | 2024-08-15 10:42 | XMS_ITS | Referral Summary ---
Author Organization [facility] Address [address] [place] [id number] Care Team Providers Care Python Java Developer Name Role Phone Juan Estrada MD Primary Care Provider [phone] Allergies No known active allergies Medications pantoprazole [...] (02/21/2022): Added automatically from request for surgery [id number] Lesion of uvula 02/20/2022 Assessment & Plan [...] Plan (02/20/2022 12:23 PM CDT): US thyroid Social History Tobacco Use Types Packs/Day Years [...] on file Legal Sex Male 7:27 PM HEAD OF HISTORY Gender Identity Male 05/30/2021 9:00 PM HEAD OF HISTORY Sexual Orientation Not on file Last Filed Vital Signs Vital Sign Reading Time Taken Comments Blood Pressure 152/87 07/18/2023 11:08 AM HEAD OF HISTORY Pulse 89 07/18/2023 11:08 AM HEAD OF HISTORY Temperature 37 C (98.6 F) 07/18/2023 11:08 AM HEAD OF HISTORY Respiratory Rate 18 07/27/2022 10:30 PM HEAD OF HISTORY Oxygen Saturation 100% 07/27/2022 11:15 PM HEAD OF HISTORY Inhaled Oxygen Concentration - - Weight 79.9 kg (176 lb 3.2 oz) 07/18/2023 11:08 AM HEAD OF HISTORY Height 180.3 cm (5' 10.98 ) 07/18/2023 11:08 AM HEAD OF HISTORY Body Mass Index 24.59 07/18/2023 11:08 AM HEAD OF HISTORY Plan of Treatment Not on file [place] [address] [place] [address] Member Subscriber Plan / Payer ( fective 2021-Present) Name:Eyal Adler Relation to Subscriber:Self Name:Eyal Adler Payer ID:[id number] (NAIC) Group ID:Not on file Type:MEDICAID RISK OTHER Address: [facility] [id number] [place] [id number] [facility] Care Teams Python Java Developer Relationship Specialty Start Date End Date Juan Estrada MD [address] [address] PCP - General 03/08/21 Aixa Shelley PRESS OPERATOR [address] [facility] [address] Hand Molder Infectious Diseases 07/18/23
--- OUTSIDE RECORDS SUMMARY | 2024-08-15 10:43 | XMS_ITS | Continuity of Care Document ---
Author Organization [facility] Address [address] [place] [address] [address] [place] [address] Phone Care Team Providers Care Siphoner Name Role Phone Argeuta OD, Pablo Unavailable Unavailable Procedures Procedure Date Office/outpatient Visit, Est Office/outpatient Visit, Est Office/outpatient Visit, New Therapeutic Fitting Of Contact Lens Advance Directives Directive Yes / No Effective Date File Name No Information Encounters Encounter Description Practice Location Reason(s) For Visit Diagnoses Date Provider Providers Copied on Encounter Office/outpat ient Visit, [facility] [address] [place] [address] [address], [place], [place], [id number], tel:[phone] [facility] No Information 9-200 8 Argueta OD Pablo. [facility] [address] [facility] [address], [place], [address], . tel:[phone] Office/outpat ient Visit, [facility], [address] [place] [address] [address], [place], [place], [id number], tel:[phone] [facility] No Information 2-[address] 8 Argueta OD Pablo. Vivian [facility] [address], [place], [address], [place]. tel:[phone] Referring Provider: [facility]ian [facility] [address], [place], [place], [facility]. tel:[phone] Office/outpat ient Visit, [facility], [address] [place] [address] [address], [place], [place], [id number], [place] tel:[phone] [facility] [place] No Information [address]. [address] [facility] , [address], [place], [address], [place]. tel:[phone] Family History Family Member Type Diagnosis Age At Onset No Information Payers Payer name Insurance type Covered libertarian ID Juan davalos(s) [employer] [id number] Social History Type Description Quantity Date Captured [...]
--- NOTE | 2024-08-15 11:12 | ED.URI ---
HPI - URI/Sore Throat General Chief Complaint: Upper Respiratory Infection Stated Complaint: throat/fever/aches/headache/ears Time Seen by Provider: 08/15/24 11:13 History of Present Illness HPI Narrative: 48-year-old male presented for complaint of sore throat, nasal congestion and ear pressure. Onset 3 days. States his throat is worse over the past day. Denies nausea vomiting, diarrhea, fevers or lethargy. Related Data Home Medications ?Medication ?Instructions ?Recorded ?Confirmed ?Last Taken ?Type metoprolol succinate 50 mg 50 mg PO DAILY 04/12/22 03/03/23 Unknown History tablet,extended release 24 hr atorvastatin 40 mg tablet 40 mg PO DAILY 03/03/23 03/03/23 Unknown History Allergies Allergy/AdvReac Type Severity Reaction Status Date / Time No Known Allergies Allergy Verified 08/15/24 10:52 Review of Systems Review of Systems: Per HPI [facility] Past Medical History Medical History GERD (gastroesophageal reflux disease) Hyperlipidemia Hypertension Surgical History Surgical History No pertinent past surgical history Family History Family History Mother Family history non-contributory Social History Social History Smoking status: Never smoker Alcohol intake: unknown Substance use type: does not use Living arrangements: alone Gender identity (if verbalized by the patient): Male Spiritual care concerns: No Exam Narrative: GENERAL: mildly Ill-appearing, no acute distress. EYES: conjunctivae clear ENT: Mucous membranes moist. TM pearly donovan with normal light reflex bilaterally; no tragal tenderness. Oropharynx erythematous without lesions. Tonsils not enlarged and without exudate. No drooling, no hoarseness, no trismus, uvula midline. No tripod positioning, hot potato voice, or soft palate swelling. NECK: Supple. No lymphadenopathy CHEST: Clear to auscultation, breath sounds equal. No respiratory distress, speaks in full sentences. HEART: Regular rate and rhythm. No murmur heard. SKIN: Warm, dry, no rash. NEURO: Alert and oriented x3. Course Course Emergency Course: Patient is aware of diagnosis, understands and agrees to treatment plan. Anticipatory guidance given. Patient agrees to follow-up as directed and is aware of reasons to seek care at the emergency department. Portions of this record may have been created with voice recognition software Level of Care: Express Care Visit Vital Signs Vital signs: Vital Signs Temperature 98.2 F 08/15/24 10:38 Pulse Rate 86 08/15/24 10:38 Respiratory Rate 20 08/15/24 10:38 Blood Pressure 135/87 08/15/24 10:38 Pulse Oximetry 100 08/15/24 10:38 Oxygen Delivery Room Air 08/15/24 10:38 Temperature 98.2 F 08/15/24 10:38 Pulse Rate 86 08/15/24 10:38 Respiratory Rate 20 08/15/24 10:38 Blood Pressure 135/87 08/15/24 10:38 Pulse Oximetry 100 08/15/24 10:38 Oxygen Delivery Room Air 08/15/24 10:38 MDM - URI/Sore Throat MDM Narrative Medical decision making narrative: negative flu, COVID, strep result reviewed with pt. Advise supportive treatments. Patient is appropriate for outpatient treatment and follow-up. Differential Diagnosis Differential diagnosis: Likely upper respiratory infection, viral infection and pharyngitis Lab Data Labs: Lab Results 08/15/24 Range/Units 11:15 POC Influenza A Ag Negative (Negative) POC Influenza B Ag Negative (Negative) POC SARS CoV-2 Ag Negative (Negative) Discharge Plan Discharge Clinical Impression: Upper respiratory infection Patient Disposition: Home, Self-Care Condition: Stable Instructions: Antibiotic Form, Upper Respiratory Infection (ED) Additional Instructions: flu and COVID negative. Rapid strep swab was negative today You will be notified in a few days if the culture comes back positive for strep, and appropriate antibiotics will be called in at that time. if symptoms are due to a viral illness, it is not treated with antibiotics. Viral symptoms can be present for up to 10-14 days. Recommendations: Flonase spray and Zyrtec for sinus congestion Cough syrup may cause drowsiness; avoid driving or take it at night time. Tylenol every 8 hours as needed for pain/fever Soft foods, cool liquids, warm tea. Gargle with warm saltwater twice a day. Chloraseptic spray and throat lozenges. Rest and stay hydrated. --Follow up with your PCP --Go to the ER immediately if you cannot swallow your saliva, trouble breathing/wheezing, throat swelling, pain is persistent and severe Patient Language: Kenyan Prescriptions: No Action metoprolol succinate 50 mg tablet extended release 24 hr 50 mg PO DAILY atorvastatin 40 mg tablet 40 mg PO DAILY Follow-up/Referrals: Natalie,Juan Jones MD [Primary Care Provider] - Stand Alone Forms: Work/School Release IP
[2024-08-15 11:17] LABS: EDCOVIDSCREEN Negative (Negative); EDINFLUASCREEN Negative (Negative); EDINFLUBSCREEN Negative (Negative)
[2024-08-15 11:31] LABS: EDSTREPNEGPOS1 Negative (Negative)
== END 2024-08-15 11:35 | disposition home or self-care (01) ==
PROVIDERS: Emergency Provider Nurse Practitioner Family; PCP Family Medicine
DX: J06.9 Acute upper respiratory infection, unspecified (principal); E78.5 Hyperlipidemia, unspecified; I10 Essential (primary) hypertension; Z20.822 Contact with and (suspected) exposure to COVID-19
CPT/HCPCS: 87081; 87426; 87804; 87880; 99213; G0463